=== PATIENT | female | born 1970 | race Two or more races ===

== ENCOUNTER 2019-01-11 15:13 | Emergency (ER) | payer MEDICAID ==
[~2019-01-11] VITALS: Ht 160 cm; Wt 57.6 kg
[2019-01-11 15:29] VITALS: BP 148/65
[2019-01-11] MEDS ORDERED: ACETAMINOPHEN 325 MG TAB PO ONE (15:45)
[2019-01-11] MEDS ORDERED: cefTRIAXone SOD 1,000 MG VL IM ONE (17:00)
[2019-01-11 17:03] LABS: Urine Amorphous Crystal FEW /hpf (None Seen); Urine Bacteria MOD /hpf (None Seen); Urine Blood Negative /uL (Negative); Urine Specific Gravity 1.008 (1.001-1.035); Urine WBC 112 /hpf (0 - 5); Urine WBC Clumps PRESENT /hpf (None Seen)
== END 2019-01-11 18:09 | disposition home or self-care (01) ==
LOC: EDBD 15:13 → ER 15:13
DX: N39.0 Urinary tract infection, site not specified (principal); E11.9 Type 2 diabetes mellitus without complications; I10 Essential (primary) hypertension
CPT/HCPCS: 81001; 82962; 96372; 99283; J0696